=== PATIENT | female | born 1990 | race Caucasian/White ===

== ENCOUNTER → 2020-05-20 | Outpatient (CLI) | payer BC, OTHER ==
[~2020-05-20] MED LIST: KEFLEX500 MG PO
== END ==
LOC: KOH-I 08:00
DX: D47.3 Essential (hemorrhagic) thrombocythemia (principal); K76.0 Fatty (change of) liver, not elsewhere classified; K80.20 Calculus of gallbladder without cholecystitis without obstruction
CPT/HCPCS: 76705